=== PATIENT | female | born 1990 | race Caucasian/White ===

== ENCOUNTER → 2016-10-22 | Outpatient (CLI) | payer OTHER ==
[~2016-10-22] MED LIST: CLC150 PO; LRT5 PO; PRED20TA PO; PRED50TA PO; PRENTAB26 PO; VALA1TAB31 PO
== END | disposition home or self-care (01) ==
LOC: C.LABSPEC 17:47
PROVIDERS: ATTEND Obstetrics & Gynecology
DX: Z34.03 Encounter for supervision of normal first pregnancy, third trimester (principal)

== ENCOUNTER 2016-11-14 06:27 | Inpatient (IN) | payer OTHER ==
[~2016-11-14] VITALS: Ht 157.5 cm; Wt 56.8 kg
[~2016-11-14 06:27] MED LIST changes: -PRENTAB26 PO; -VALA1TAB31 PO
[2016-11-19] MEDS ORDERED: PRENTAB26 PO (13:31)
[2016-11-19] MEDS ORDERED: VALA1TAB31 PO (13:31)
[2016-11-19 13:34] VITALS: Ht 157.5 cm; Wt 56.8 kg
[2016-11-19] MEDS ORDERED: LACTATED RINGER'S 1000ML 1,000 ML IV PRN (13:36)
[2016-11-19 14:07] LABS: MEAN CELL VOLUME 86.7 fL (80-100); MEAN CORPUSCULAR HEMOGLOBIN 30.7 pg (25-34); MEAN CORPUSCULAR HGB CONC 35.4 g/dl (32-36); MEAN PLATELET VOLUME 11.2 fL (7.4-10.4); PLATELET COUNT 151 K/uL (130-400); RED BLOOD COUNT 4.27 M/uL (4.2-5.4); WHITE BLOOD COUNT 10.79 K/uL (4.8-10.8)
[2016-11-19] MEDS: LACTATED RINGER'S 1000ML 1,000 ML IV SCH ×2 (14:51→16:46)
[2016-11-19] MEDS ORDERED: FENTANYL 2MCG/ML ROPIV 1.25MG/ML 100ML BAG EPI ONE (14:53)
[2016-11-19] MEDS ORDERED: BUPIVACAINE 0.25% 30 ML VIAL ONE (14:53)
[2016-11-19] MEDS ORDERED: EpHEDrine SULFATE INJ 50 MG/ML AMP ONE (14:53)
[2016-11-19] MEDS: FENTANYL CITRATE INJ 50 MCG/1 ML 2 ML VIAL ONE ×2 (15:18→15:40)
[2016-11-19] MEDS ORDERED: NALOXONE HCL INJ 1 MG in SODIUM CHLORIDE 0.9% 1000ML 1,000 ML IV PRN (17:27)
[2016-11-19] MEDS ORDERED: LACTATED RINGER'S 1000ML 500 ML IV PRN (17:27)
[2016-11-19] MEDS ORDERED: EpHEDrine SULFATE INJ 50 MG/ML AMP IV PRN (17:30)
[2016-11-19] MEDS ORDERED: DiphenhydrAMINE HCL 50 MG/ML VIAL IV PRN (17:30)
[2016-11-19] MEDS ORDERED: ONDANSETRON INJ 2 MG/ML 2 ML VIAL IV PRN (17:30)
[2016-11-19] MEDS ORDERED: NALOXONE HCL INJ 0.4 MG/1 ML VIAL/CARP IV PRN (17:30)
[2016-11-19] MEDS ORDERED: NALBUPHINE HCL INJ 10 MG/ML AMP IV PRN (17:30)
[2016-11-19] MEDS ORDERED: FENTANYL 2MCG/ML ROPIV 1.25MG/ML 100ML BAG EPI PRN (17:30)
[2016-11-19] MEDS ORDERED: OXYTOCIN 30 UNITS/500ML NSS IV ONE (17:39)
[2016-11-19] MEDS ORDERED: HYDROCORTISONE ACETATE 25 MG SUPP PR PRN (18:45)
[2016-11-19] MEDS ORDERED: LANOLIN OINT EXT PRN ×2 (18:45)
[2016-11-19] MEDS ORDERED: ACETAMINOPHEN 325 MG TAB PO PRN (18:45)
[2016-11-19] MEDS ORDERED: BENZOCAINE 20% AER SPR 82.5 GM CAN EXT PRN (18:45)
[2016-11-19] MEDS ORDERED: OXYTOCIN 30 UNITS/500ML NSS IV PRN (18:45)
[2016-11-19] MEDS ORDERED: SUPERCREAM 0.870 % 15GM JAR EXT PRN (18:45)
[2016-11-19] MEDS ORDERED: ACETAMINOPHEN/CODEINE 300/30MG TAB PO PRN (18:45)
--- NOTE | 2016-11-19 19:03 | Anesthesia Procedure Note ---
Anesthesia Epidural Removal Nt Date & Time Nov 19, 2016 at 19:03 Vital Signs Pain Intensity: 0.0 Notes Mental Status: alert / awake / arousable, participated in evaluation Nausea / Vomiting: adequately controlled Pain: adequately controlled Airway Patency, RR, SpO2: stable & adequate BP & HR: stable & adequate Hydration State: stable & adequate Neuraxial Anesthesia: was administered, sensory block is resolving Anesthetic Complications: no major complications apparent, pt satisfied with anesthetic care Epidural: removed without complications, with tip intact
[2016-11-19 21:00] VITALS: BP 117/62; PULSE 99; TEMP 36.5
[2016-11-20 00:10] VITALS: BP 114/76; PULSE 89; TEMP 36.7; O2SAT 96
[2016-11-20] MEDS: IBUPROFEN 600 MG TAB PO PRN ×3 (01:24→15:36)
--- NOTE | 2016-11-20 02:38 | DELIVERY SUMMARY ---
DATE OF OPERATION: 11/19/2016 DELIVERING SURGEON: Dr. Grider. P[RE-DELIVERY DIAGNOSES: 1. A 26-year-old G1, P0, at 40 weeks 5 days. 2. Spontaneous labor. 3. History of herpes simplex virus. No current outbreak. POST-DELIVERY DIAGNOSES: Same. ESTIMATED BLOOD LOSS: 300 mL FINDINGS: A viable male , Apgars 8 and 9. CONDITION AFTER DELIVERY: Stable and good. DESCRIPTION OF DELIVERY: The patient progressed to complete with epidural anesthesia. She then spontaneously vaginally delivered a viable male from a left occiput anterior position. The head delivered, nuchal cord x2 was noted and easily reduced. The anterior shoulder followed by the posterior shoulder were delivered followed by the body. The baby was placed on the mother's abdomen where a spontaneous cry was heard. The cord was doubly clamped and cut. A segment was sent for cord gases. Cord blood was obtained. The placenta delivered spontaneously, intact with a 3-vessel cord. Pitocin was given. The uterus began to clamp down, and the cervix, vagina and perineum were inspected for lacerations. A second-degree perineal laceration was noted. The anal sphincter muscle was visible and intact. Rectal exam revealed no entry into the anus as well as subsequent rectal exam revealed no sutures in the rectum. The second-degree perineal laceration was repaired with 3-0 Vicryl in standard fashion. Excellent hemostasis was observed. The patient and baby tolerated the delivery well. Sponge, instrument and needle counts were correct x2 at the conclusion of the delivery. I attest to the content of the Intraoperative Record and any orders documented therein. Any exceptio ns are noted below.
[2016-11-20 04:15] VITALS: BP 113/73; PULSE 82; TEMP 36.6; O2SAT 98
[2016-11-20 06:49] LABS: HEMATOCRIT 31.8 % (37-47)
[2016-11-20 07:25] VITALS: BP 86/59; PULSE 87; TEMP 36.6
[2016-11-20] MEDS: PRENATAL VITAMIN TAB PO SCH (07:42)
--- NOTE | 2016-11-20 08:39 | Progress Note ---
Subjective Nov 20, 2016. Subjective conversation w/ patient, physical exam Ambulation: ambulating normally Voiding: no voiding problems Passing Gas: Yes Diet Tolerance: Regular Diet Lochia: Moderate Feeding Type: Breast Feeding Pain: controlled Review of Systems Constitutional: No problem reported Respiratory: No problem reported Cardiac: No problem reported Breast: No problem reported Abdomen: No problem reported Female : No problem reported Objective Vital Signs Date Time Temp Pulse Resp B/P Pulse Ox O2 Delivery O2 Flow Rate FiO2 11/20/16 04:15 36.6 82 16 113/73 98 Room Air 11/20/16 00:10 36.7 89 20 114/76 96 Room Air 11/20/16 00:10 96 Room Air 11/19/16 21:00 36.5 99 20 117/62 Room Air Physical Exam General Appearance: WELL-APPEARING, NO APPARENT DISTRESS Respiratory/Chest: no respiratory distress Cardiovascular: regular rate, rhythm Abdomen: non tender, soft Fundus: Firm Incision Description: Clean, Dry & Intact Extremities: normal inspection Laboratory Results Last 24 Hours Test 11/19/16 13:56 11/20/16 06:07 White Blood Count 10.79 K/uL Red Blood Count 4.27 M/uL Hemoglobin 13.1 g/dL 10.9 g/dL Hematocrit 37.0 % 31.8 % Mean Corpuscular Volume 86.7 fL Mean Corpuscular Hemoglobin 30.7 pg Mean Corpuscular Hemoglobin Concent 35.4 g/dl RDW Standard Deviation 42.6 fL RDW Coefficient of Variation 13.5 % Platelet Count 151 K/uL Mean Platelet Volume 11.2 fL Assessment and Plan Day#: 1 Continue Routine Care: POD#1 s/p c/s breech, doing well. Continue ambulation, PO hydration. Continue routine care.
[2016-11-20 12:15] VITALS: BP 124/79; PULSE 99; TEMP 36.5
[2016-11-20 13:10] VITALS: BP 93/53; PULSE 87; TEMP 36.9
[2016-11-20 15:30] VITALS: BP 110/76; PULSE 87; TEMP 36.6
[2016-11-20] MEDS: ACETAMINOPHEN/CODEINE 300/30MG TAB PO PRN (17:25)
[2016-11-20] MEDS ORDERED: BISACODYL 5 MG TABEC PO ONE (20:00)
[2016-11-21] VITALS: BP 105/62; PULSE 66; TEMP 36.4
[2016-11-21] MEDS: ACETAMINOPHEN/CODEINE 300/30MG TAB PO PRN (04:41)
[2016-11-21] MEDS: IBUPROFEN 600 MG TAB PO PRN (04:41)
[2016-11-21] MEDS ORDERED: BISACODYL 10 MG SUPP PR PRN (07:00)
[2016-11-21] MEDS: PRENATAL VITAMIN TAB PO SCH (08:11)
[2016-11-21 08:15] VITALS: BP 113/71; PULSE 78; TEMP 36.7
--- NOTE | 2016-11-21 08:34 | Progress Note ---
Subjective Nov 21, 2016. Subjective conversation w/ patient, physical exam, lab review Ambulation: ambulating normally Voiding: no voiding problems Passing Gas: Yes Diet Tolerance: Regular Diet Lochia: Small Feeding Type: Breast Feeding Pain: minimal Objective Vital Signs Date Time Temp Pulse Resp B/P Pulse Ox O2 Delivery O2 Flow Rate FiO2 11/21/16 00:00 36.4 66 18 105/62 Room Air 11/21/16 00:00 Room Air 11/20/16 15:30 36.6 87 20 110/76 Room Air 11/20/16 15:30 Room Air 11/20/16 12:15 36.5 99 18 124/79 Room Air Physical Exam General Appearance: WELL-APPEARING, WD/WN, NO APPARENT DISTRESS Respiratory/Chest: lungs clear, normal breath sounds Cardiovascular: regular rate, rhythm Abdomen: normal bowel sounds, non tender, soft Fundus: Firm, Non-Tender, Relation to Umbilicus (at u) Extremities: non-tender, normal inspection Assessment and Plan Post- Day#: 2 Continue Routine Care: Doing well. Plan d/c. Instructions given.
--- NOTE | 2016-11-21 08:36 | Discharge Instructions ---
Discharge Instructions Admission Reason for Admission: LABOR Discharge Discharge Diagnosis / Problem: s/p vaginal delivery Discharge Goals Goal(s): Routine recovery after delivery Medications Continue Dispensed Medications: supercream, dermaplast, tucks, lansinoh Activity Recommendations Activity Limitations: per Instructions/Follow-up section ACTIVITY RECOMMENDATIONS: * Gradual return to full activity over the next 2-3 weeks. * No lifting - nothing heavier than baby over the next 2-3 weeks. * Do not engage in vigorous exercise, sexual activity or sports until cleared by your physician. * Do not drive or operate any motorized equipment until cleared by your physician. * You may shower/bathe daily. MEDICATIONS: For discomfort or pain, you may use Acetaminophen (Tylenol), Ibuprofen (Advil), or Naproxen (Aleve) following the package directions. For constipation you may use Colace following the package directions. BREAST CARE: If you are not breast feeding: * Wear a supportive bra 24 hours a day for one to two weeks. * Avoid stimulating your breasts and nipples as much as possible during the first few weeks after delivery. * When taking a shower, have the warm water hit your back, not breasts. * When your breasts feel full, apply ice packs. Usually three to four times a day helps ease the discomfort. * Take a mild pain medication (Tylenol / Motrin) when you are uncomfortable. If breast feeding: * Use breast milk to lubricate nipples. Lansinoh cream may be used for sore nipples. You do not need to remove cream prior to breast feeding. If using a different brand of cream, check the label for directions regarding removal of cream prior to nursing. * Wear a supportive bra. * If having problems with breasts or breast feeding, call a senior business consultant or your health care provider. EPISIOTOMY CARE: After delivery, if you have an episiotomy (stitches), the following steps will ease discomfort and aid healing. * For the first 24 hours after delivery, place ice packs next to your episiotomy to help reduce swelling. * After the first 24 hour-period, sitz baths, either portable or in the tub, are suggested. A shower with a shower arm sprayed over the episiotomy may be comforting. * Cuca care should be done after each voiding and bowel movement. Squirt warm water from a plastic bottle over the perineum (region of the body between the anus and urinary opening) and pat dry. * Use Dermoplast to ease discomfort. Shake container. Vian directly over the episiotomy. Place a Tucks on a clean sanitary pad next to your episiotomy. SPECIAL CARE INSTRUCTIONS: When you are discharged from the hospital, it is important for you to follow the instructions listed below: * During the first week at home, you should be able to care for yourself and your baby. In addition, the usual light household activities are encouraged. * Limit your activities to the way you feel. Do not try to clean the house or move furniture. Be sensible. * If you actively engage in sports and have done so up until the time of your delivery, you may resume these activities as soon as you feel able. This may take up to one month or even longer. Use good judgment. * Continue to take your vitamins for at least six weeks after the of your baby. * Your diet need not be limited unless you were on a special diet before your delivery. Breast-feeding mothers need around 2500 calories per day and at least 64-80 ounces of fluid per day (8 to 10 glasses). * You should eat foods from the four major food groups. Crash diets or fad diets are to be avoided. Eating lean meats, fresh fruits and vegetables, low-fat dairy products, high fiber foods and a regular exercise program, will help you get back to your pre- weight without putting your health at risk. * Constipation is sometimes a problem after delivery. Take a mild laxative as needed. If breast feeding, Milk of Magnesia is acceptable to use. You may use a suppository or Fleets enema if no episiotomy. * A daily shower or tub bath is suggested. Be sure to thoroughly and gently dry the perineum. * A bloody vaginal discharge will usually continue until around four weeks post . A small amount of bleeding may continue for as long as six weeks. Vaginal discharge changes from the bright red bleeding after delivery to pink then brownish and finally yellowish-pink before becoming white and disappearing. * Bleeding may increase with activity. Your first period may come in 4-8 weeks. If you are breast feeding, your period may be delayed even longer. * [place] (sex) can begin whenever both you and your partner feel comfortable and do not have any form of genital infection. It is recommended that you wait at least six weeks for internal and external healing to occur. If you have questions, please talk to your health care practitioner. A condom should be used to prevent infection and . * Foreplay, gentle intercourse and lubrication is very important the first several times to prevent pain. A water-based lubricant such as K-Y jelly or Astroglide may be used. * If you have RH negative blood and your baby is RH positive, you will receive RHOGAM by injection prior to discharge. The nurse will give you a card to keep with you that has the date and place that you received RHOGAM after delivery. * During your care, you had a Rubella screen done to check for the presence of rubella antibodies in your blood. If your test was negative, you will receive a Rubella vaccine prior to discharge. This vaccine may cause a fever, soreness at the injection site and flu-like symptoms. If these symptoms persist, notify your health care practitioner. is not advised for one month after a Rubella vaccine. * Verbalizes understanding of car seat law as reviewed with patient nursing. * Car Seat hand-out given and reviewed with patient by nursing. * Shaken baby information reviewed with patient by nursing. Call you doctor if: * Heavy bleeding (saturating several pads an hour) or passing clots the size of your fist. * A fever >101 degrees F (38.3 degrees C) on two occasions four hours apart and /or chills. * Unusual pain in the pelvic or vaginal areas. * "Baby Blues" lasting longer than two weeks. If you have any questions or concerns, call your health care practitioner at . FOLLOW UP VISIT: * Please call the office at to schedule a 6 week examination. It is important you keep this appointment. It is important for you to make arrangements for either yearly or twice yearly check-ups thereafter. . Current Hospital Diet Patient's current hospital diet: Regular OB Diet Discharge Diet Recommended Diet: Regular Diet Pending Studies Studies pending at discharge: no Medical Emergencies . Who to Call and When: Medical Emergencies: If at any time you feel your situation is an emergency, please call 911 immediately. . Non-Emergent Contact Non-Emergency issues call your: Toy Assembly Supervisor . . "Provider Documentation" section prepared by Adina Andrade. VTE Core Measure Inpt VTE Proph given/why not?: Treatment not indicated
[2016-11-21 13:00] VITALS: BP_DIAS 71; PULSE 78; TEMP 36.7
== END 2016-11-21 13:20 | disposition home or self-care (01) | DRG 775 ==
LOC: C.LD 11-19 13:02 → C.OBG 11-19 21:21
PROVIDERS: ADMIT Obstetrics & Gynecology; ATTEND Obstetrics & Gynecology
PROC: 0KQM0ZZ Repair Perineum Muscle, Open Approach (ICD-10-PCS; principal; 2016-11-19)
PROC: 10E0XZZ Delivery of Products of Conception, External Approach (ICD-10-PCS; principal; 2016-11-19)
DX: O48.0 Post-term pregnancy (principal); O69.81X0 Labor and delivery complicated by cord around neck, without compression, not applicable or unspecified; O70.1 Second degree perineal laceration during delivery; Z3A.40 40 weeks gestation of pregnancy; Z37.0 Single live birth

== ENCOUNTER → 2017-05-27 | Outpatient (CLI) | payer OTHER ==
[~2017-05-27] MED LIST changes: -CLC150 PO; -LRT5 PO; -PRED20TA PO; -PRED50TA PO; +PRENTAB26 PO
[2017-05-27 13:36] LABS: ALT/SGPT 22 U/L (12-78); BLOOD UREA NITROGEN 13 mg/dl (7-18); BUN/CREATININE RATIO 16.7 (10-20); CALCIUM 8.7 mg/dl (8.5-10.1); CARBON DIOXIDE 25 mmol/L (21-32); CHLORIDE 108 mmol/L (98-107); CHOLESTEROL 157 mg/dl (0-200); CREATININE 0.78 mg/dl (0.60-1.20); GLUCOSE 79 mg/dl (70-99); POTASSIUM 4.1 mmol/L (3.5-5.1); SODIUM 139 mmol/L (136-145); TRIGLYCERIDES 84 mg/dl (0-150); VERY LOW DENSITY LIPOPROT CALC 17 mg/dl
[2017-05-27 13:46] LABS: ALB/GLOB RATIO 1.2 (0.9-2); ALKALINE PHOSPHATASE 68 U/L (45-117); AST/SGOT 13 U/L (15-37); CHOLESTEROL/HDL RATIO 3.1; HDL CHOLESTEROL 51 mg/dl; LDL CHOLESTEROL CALCULATED 89 mg/dl
== END | disposition home or self-care (01) ==
LOC: C.LABPBG 07:35
PROVIDERS: ATTEND Neuromusculoskeletal Medicine & OMM
DX: Z00.00 Encounter for general adult medical examination without abnormal findings (principal)

== ENCOUNTER → 2018-05-04 | Outpatient (CLI) | payer OTHER | END | disposition home or self-care (01) | LOC: C.LABPBG 07:59 | PROVIDERS: ATTEND Family Medicine | DX: Z00.00 Encounter for general adult medical examination without abnormal findings (principal) ==

== ENCOUNTER 2019-12-04 08:07 | Inpatient (IN) ==
[2019-12-04] MEDS ORDERED: OXYTOCIN 30 UNITS/500 ML BAG IV PRN ×3 (08:50→19:11)
[2019-12-04] MEDS: LACTATED RINGER'S 1,000 ML IV PRN ×3 (09:28→16:51)
[2019-12-04 09:35] LABS: Hematocrit (blood only) 33.7 % (37-47); Hemoglobin 11.5 g/dL (12.0-16.0); Mean Corpuscular Hemoglobin 28.9 pg (25-34); Mean Corpuscular Volume 84.7 fL (80-100); Mean Platelet Volume 10.4 fL (7.4-10.4); Platelet Count 132 K/uL (130-400); RDW Coefficient of Variation 14.5 % (11.5-14.5); RDW Standard Deviation 44.5 fL (36.4-46.3); Red Blood Count 3.98 M/uL (4.2-5.4); White Blood Count 7.13 K/uL (4.8-10.8)
--- NOTE | 2019-12-04 09:55 | History & Physical Report ---
Date of Service December 04, 2019 Assessment & Plan (1) Supervision of normal intrauterine in multigravida: IUP at 41 weeks for IOL by pitocin will request epidural analgesia before AROM anticipate vaginal delivery History of Present Illness Primary Care Provider: Coleen Huynh DO Patient is a 29 yo white female EDC 11/30/19 who presents for IOL because of post term . GBS (-) was complicated by history of genital HSV for which she has been taking valtrex prophylactically since 36 weeks. Allergies Allergy/AdvReac Type Severity Reaction Status Date / Time nickel Allergy Rash Verified 12/04/19 08:32 Home Medications Home Medications Medication Instructions Recorded Confirmed Type PNV cmb#95-ferrous fumarate-FA 1 tab PO DAILY 12/04/19 12/04/19 History [] ferrous sulfate [iron] 325 mg PO DAILY 12/04/19 12/04/19 History valacyclovir [Valtrex] 1,000 mg PO DAILY 12/04/19 12/04/19 History Patient History Medical History (Updated 12/04/19 @ 09:53 by Sarah Sommer MD, FACOG) Gastroesophageal reflux no meds Genital herpes simplex (Acute) last outbreak was approx 5 plus years ago. Only breakout known to patient. Lentigines followed by dermatology. Normal in multigravida, antepartum Seizure hx of febrile seizures. 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 Other Information That Helps Us Care for You: No Feels Safe at Home: Yes Safety Concerns: Feels Safe At This Time Smoking Status: Never smoker Second Hand Exposure: No ; Hx Alcohol Use: Yes Alcohol Intake Frequency: Rarely Hx Substance Use: No Dental Care, Regularly: Yes Physical Activity Frequency: 3-4 Times per Week Seatbelt Use: always Sunscreen Use: Yes Review of Systems All systems reviewed & are unremarkable except as noted in HPI & below Physical Exam Constitutional: WD/WN, vitals as above Respiratory: normal respiratory effort, lungs clear to auscultation Cardiovascular: RRR, no murmur, no edema Gastrointestinal (Abdomen): normal bowel sounds, soft, nontender, no h epatosplenomegaly Psychiatric: A+Ox3, euthymic affect Genitourinary: OB Exam Abdomen: + vertex and + estimated weight (7-8 pounds) Manual OB Exam: + cervical dilation 3 cm, + cervical effacement 70% and + station -2 OB Exam Monitor Tracing: + external FHT monitor used, + external uterine monitor used, + category I and + normal FHT variability Results & Data Vital Signs (Past 12 Hours) Vital Signs Temp Pulse Resp BP 12/04/19 09:36 96 H 121/80 12/04/19 08:25 108 H 120/80 12/04/19 08:24 98.2 F 16 Coding Level of Care Code None Diagnoses Supervision of normal intrauterine in multigravida Z34.80
[2019-12-04 10:09] LABS: Mean Corpuscular Hgb Conc 34.1 g/dL (32-36)
[2019-12-04] MEDS ORDERED: fentaNYL citrate 100 MCG/2 ML VIAL ONE (13:10)
[2019-12-04] MEDS ORDERED: BUPIVACAINE 0.25% 30 ML VIAL ONE (13:10)
[2019-12-04] MEDS ORDERED: ePHEDrine sulfate 50 MG/ML AMP ONE (13:10)
[2019-12-04] MEDS ORDERED: fentaNYL 2MCG/ML ROPIV 1.25MG/ML 100 ML BAG EPI ONE (13:12)
[2019-12-04] MEDS ORDERED: ONDANSETRON INJ 2 MG/ML 2 ML VIAL IV PRN (13:53)
[2019-12-04] MEDS ORDERED: NALOXONE HCL 1 MG in SODIUM CHLORIDE 0.9% 1000ML 1,000 ML IV PRN (13:53)
[2019-12-04] MEDS ORDERED: DiphenhydrAMINE HCL 50 MG/ML VIAL IV PRN (13:53)
[2019-12-04] MEDS ORDERED: ePHEDrine sulfate 50 MG/ML AMP IV PRN (13:53)
[2019-12-04] MEDS ORDERED: NALBUPHINE HCL INJ 10 MG/ML AMP IV PRN (13:53)
[2019-12-04] MEDS ORDERED: NALOXONE HCL 0.4 MG/1 ML VIAL/CARP IV PRN (13:53)
[2019-12-04] MEDS ORDERED: fentaNYL 2MCG/ML ROPIV 1.25MG/ML 100 ML BAG EPI PRN (13:53)
--- NOTE | 2019-12-04 13:53 | Anesthesiology Consultation ---
Date of Service December 04, 2019 Assessment & Plan (1) Encounter for pre-operative examination: Chart Review Chart Review: Acceptable Risk for Labor Epidural Consults Requested none ASA ASA2 Proposed Anesthesia Anesthesia Type: Labor Epidural Risk / Benefits Reviewed With: PT / POA / Parent / Guardian, Accepts Plan and Informed Consent Obtained History Height/Weight Height: 5 ft 2 in Weight: 58.06 kg Allergies Allergy/AdvReac Type Severity Reaction Status Date / Time nickel Allergy Rash Verified 12/04/19 08:32 Medications Home Medications Medication Instructions Recorded Confirmed Last Taken PNV cmb#95-ferrous fumarate-FA 1 tab PO DAILY 12/04/19 12/04/19 12/04/19 07:00 [] ferrous sulfate [iron] 325 mg PO DAILY 12/04/19 12/04/19 12/04/19 07:00 valacyclovir [Valtrex] 1,000 mg PO DAILY 12/04/19 12/04/19 12/04/19 07:00 Active Medications Generic Name Dose Route Start Last Admin Trade Name Freq PRN Reason Stop Dose Admin Lactated Ringer's 1,000 mls @ 125 mls/hr 12/04/19 08:50 12/04/19 13:31 Lr IV 12/06/19 08:49 999 mls/hr .Q8H PRN Administration L&D Protocol Protocol Oxytocin 30 units in 500 mls @ 7 mls/hr 12/04/19 08:50 12/04/19 12:14 Pitocin IV 12/06/19 08:49 0.42 units/hr .Q24H PRN 7 mls/hr Labor Induction/Augmentation Titration Protocol 0.42 UNITS/HR Past Medical History Medical History Gastroesophageal reflux no meds Genital herpes simplex (Acute) last outbreak was approx 5 plus years ago. Only breakout known to patient. Lentigines followed by dermatology. Normal in multigravida, antepartum Seizure hx of febrile seizures. Exercise / Class Metabolic Activity II 4-5 Yardwork/Stairs/Walk up hill Past Family History Family History Grandmother Diabetes Sister Kidney stones Seizure Grandfather Prostate cancer Grandfather (Maternal) Myocardial infarction Aunt Myocardial infarction Brother Seizure Father B12 deficiency Mother No known health problems Denies family history of Ovarian cancer Breast cancer Colorectal cancer Past Surgical History Surgical History History of tonsillectomy and adenoidectomy History of tooth extraction S/P tonsillectomy (Resolved) S/P wisdom tooth extraction (Resolved) Past Anesthesia History No Hx of Anesthesia Complications and No Family Hx of Anesthesia Complications History of PONV No Hx of PONV and No Hx of Motion Sickness Social History Smoking Status: Never smoker Hx Alcohol Use: Yes Hx Substance Use: No substance use type: does not use Physical Exam Vital Signs Last Vital Signs Temp 98.2 F 12/04/19 08:24 Pulse 87 12/04/19 13:14 Resp 16 12/04/19 08:24 BP 124/79 12/04/19 13:14 ENMT Mouth: no dentition abnormality Thyromental Distance: > or= 3.5 Finger Breadths Mallampati Class: II Neck normal visual inspection Respiratory normal respiratory effort Auscultation: lungs clear to auscultation bilaterally Cardiovascular Rate/Rhythm: regular rate and regular rhythm Testing Laboratory Results 12/04/19 09:09
[2019-12-04] MEDS ORDERED: BENZOCAINE 20% AER SPR 82.5 GM CAN EXT PRN (19:11)
[2019-12-04] MEDS ORDERED: bisacodyL 10 MG SUPP PR PRN (19:11)
[2019-12-04] MEDS ORDERED: SUPERCREAM 0.870% 15 GM JAR EXT PRN (19:11)
[2019-12-04] MEDS ORDERED: HYDROCORTISONE ACETATE 25 MG SUPP PR PRN (19:11)
[2019-12-04] MEDS ORDERED: OXYCODONE/ACETAMINOPHEN 5mg/325mg TAB PO PRN (19:11)
[2019-12-04] MEDS ORDERED: ACETAMINOPHEN 325 MG TAB PO PRN (19:11)
[2019-12-04] MEDS ORDERED: DIPHTHERIA/TETANUS/PERTUSSIS 0.5 ML SYR/VIAL IM ONE (19:11)
--- NOTE | 2019-12-04 19:23 | Anesthesia Procedure Note ---
Date of Service December 04, 2019 Anesthesia Post Epidural Note Vital Signs Vital Signs: Temp Pulse Resp BP Pulse Ox 98.2 F 101 H 16 121/61 100 12/04/19 08:24 12/04/19 19:16 12/04/19 08:24 12/04/19 19:16 12/04/19 19:00 Notes Mental Status: alert / awake / arousable and participated in evaluation Nausea / Vomiting: adequately controlled Pain: adequately controlled Airway Patency, RR, SpO2: stable & adequate BP & HR: stable & adequate Hydration State: stable & adequate Neuraxial Anesthesia: was administered and sensory block is resolving Anesthetic Complications: no major complications apparent and Pt Satisfied with anesthetic care Epidural: Removed without complications and With tip intact
--- NOTE | 2019-12-04 19:38 | Delivery Summary ---
DATE OF OPERATION: 12/04/2019 The patient is a 29-year-old 3, para 1-0-1-1 white female, EDC of 11/30/2019 who presented for induction of labor because of post-term . She was started on Pitocin augmentation. She received effective epidural analgesia. Membranes were ruptured for clear fluid. She progressed to full dilation and was delivered of a viable female . After the head was delivered, the anterior arm presented and the was rotated so then the anterior arm became the posterior arm. The rest of the infant delivered without difficulty and was placed on the mother's abdomen for further attention and drying. There was spontaneous crying and the was moving all 4 limbs. The cord was then clamped and cut after a minute. Placenta was expressed intact with a 3-vessel cord. A first-degree perineal laceration was repaired with 3-0 chromic in the usual fashion. Estimated blood loss was 200 mL. Mother and infant were doing well after delivery. I attest to the content of the Intraoperative Record and any orders documented therein. Any exception s are noted below.
[2019-12-04] MEDS ORDERED: DOCUSATE SODIUM 100 MG CAP PO SCH (21:00)
[2019-12-04] MEDS: IBUPROFEN 600 MG TAB PO PRN (22:18)
[2019-12-05] MEDS: IBUPROFEN 600 MG TAB PO PRN ×3 (03:39→15:31)
[2019-12-05 07:21] LABS: Hemoglobin 10.8 g/dL (12.0-16.0); Mean Corpuscular Hemoglobin 28.6 pg (25-34); Mean Corpuscular Hgb Conc 33.8 g/dL (32-36); Mean Corpuscular Volume 84.9 fL (80-100); Mean Platelet Volume 10.6 fL (7.4-10.4); Platelet Count 114 K/uL (130-400); RDW Coefficient of Variation 14.5 % (11.5-14.5); RDW Standard Deviation 44.7 fL (36.4-46.3); Red Blood Count 3.77 M/uL (4.2-5.4); White Blood Count 9.19 K/uL (4.8-10.8)
[2019-12-05] MEDS ORDERED: PRENATAL VITAMIN 1 TAB PO SCH (08:00)
--- NOTE | 2019-12-05 08:09 | Obstetrical Progress Note ---
Date of Service December 05, 2019 Assessment & Plan (1) Encounter for care and examination after delivery: stable exam continue current care plan Day #:: 1 Subjective Ambulation: ambulating normally Voiding: no voiding problems Diet Tolerance:: regular diet Lochia:: Moderate Feeding Type:: breast feeding Review of Systems All systems reviewed & are unremarkable except as noted in HPI & below Psychiatric: + as per Subjective / HPI Physical Exam Constitutional WD/WN, vitals as above Psychiatric A+Ox3, euthymic affect Genitourinary OB Exam Abdomen: + fundal height Fundus: + firm and + relation to umbilicus (1 below U) Results & Data Vital Signs (Past 12 Hours) Vital Signs Temp Pulse Pulse Resp BP BP Pulse Ox 12/05/19 03:15 97.9 F 83 18 107/66 12/05/19 00:15 97.9 F 88 18 105/67 12/04/19 22:05 97.7 F 101 H 18 108/72 100 12/04/19 21:01 106 H 128/77 12/04/19 20:46 112 H 124/81 12/04/19 20:31 93 H 18 117/72 12/04/19 20:16 109 H 131/75
[2019-12-05] MEDS ORDERED: bisacodyL 5 MG TABEC PO SCH (20:00)
== END 2019-12-05 21:19 | disposition home or self-care (01) | DRG 806 ==
LOC: 4S1 08:07 → 4S2 21:19

== ENCOUNTER 2023-03-08 07:44 | Inpatient (IN) ==
[2023-03-08] MEDS ORDERED: OXYTOCIN 30 UNITS/500 ML BAG IV PRN ×4 (08:10→17:25)
[2023-03-08] MEDS ORDERED: LIDOCAINE 1% LOCAL 20 ML VIAL INFIL PRN (08:10)
[2023-03-08] MEDS: LACTATED RINGER'S 1,000 ML IV PRN ×3 (08:50→13:47)
[2023-03-08] MEDS ORDERED: SODIUM CHLORIDE 0.9% PF INJ 10 ML VIAL ONE (09:10)
[2023-03-08] MEDS ORDERED: fentaNYL citrate PF 100 MCG/2 ML VIAL ONE (09:10)
[2023-03-08] MEDS ORDERED: ePHEDrine sulfate 50 MG/ML AMP ONE (09:10)
[2023-03-08] MEDS ORDERED: BUPIVACAINE 0.25% PF 30 ML VIAL ONE (09:10)
[2023-03-08] MEDS ORDERED: LIDOCAINE 2%/EPINEPHRINE 1:200,000 20 ML PF ONE (09:11)
[2023-03-08] MEDS ORDERED: fentaNYL 2MCG/ML ROPIVACAINE 1.25MG/ML 100 ML BAG EPI ONE (09:11)
[2023-03-08 09:15] LABS: Hematocrit (blood only) 30.5 % (37.0-47.0); Hemoglobin 9.6 g/dl (12.0-16.0); Mean Corpuscular Hemoglobin 24.1 pg (25.0-34.0); Mean Corpuscular Hgb Conc 31.5 g/dL (32.0-36.0); Mean Corpuscular Volume 76.6 fL (80.0-100.0); Mean Platelet Volume 10.9 fL (9.4-12.4); Platelet Count 159 K/uL (130-400); RDW Standard Deviation 44.1 fL (36.4-46.3); Red Blood Count 3.98 M/uL (4.20-5.40)
[2023-03-08] MEDS ORDERED: NALOXONE HCL 1 MG in SODIUM CHLORIDE 0.9% 1000ML 1,000 ML IV PRN (09:32)
[2023-03-08] MEDS ORDERED: BUPIVACAINE 0.25% PF 30 ML VIAL EPI PRN (09:32)
[2023-03-08] MEDS ORDERED: ROPIVACAINE 0.5% PF 5 MG/ML 20 ML VIAL EPI PRN (09:32)
[2023-03-08] MEDS ORDERED: NALBUPHINE HCL INJ 10 MG/ML AMP IV PRN (09:32)
[2023-03-08] MEDS ORDERED: fentaNYL 2MCG/ML ROPIVACAINE 1.25MG/ML 100 ML BAG EPI PRN (09:32)
[2023-03-08] MEDS ORDERED: SODIUM CHLORIDE 0.9% PF INJ 10 ML VIAL EPI PRN (09:32)
[2023-03-08] MEDS ORDERED: diphenhydrAMINE 50 MG/ML VIAL IV PRN (09:32)
[2023-03-08] MEDS ORDERED: fentaNYL citrate PF 100 MCG/2 ML VIAL EPI STA (09:32)
[2023-03-08] MEDS ORDERED: SODIUM CHLORIDE 0.9% PF INJ 10 ML VIAL EPI STA (09:32)
[2023-03-08] MEDS ORDERED: fentaNYL citrate PF 100 MCG/2 ML VIAL EPI PRN (09:32)
[2023-03-08] MEDS ORDERED: LIDOCAINE 2%/EPINEPHRINE 1:200,000 20 ML PF EPI STA (09:32)
[2023-03-08] MEDS ORDERED: LIDOCAINE 2% MPF LOCAL 5 ML VIAL EPI PRN (09:32)
[2023-03-08] MEDS ORDERED: BUPIVACAINE 0.25% PF 30 ML VIAL EPI STA (09:32)
[2023-03-08] MEDS ORDERED: NALOXONE HCL 0.4 MG/1 ML VIAL/CARP IV PRN (09:32)
--- NOTE | 2023-03-08 09:34 | Anesthesiology Consultation ---
Date of Service March 08, 2023 Assessment & Plan (1) Encounter for pre-operative examination: Chart Review Chart Review: Patient NOT seen in Pre Admission Testing and Acceptable Risk for Labor Epidural Consults Requested none History Height/Weight Height: 5 ft 2 in Weight: 57.153 kg Allergies Allergy/AdvReac Type Severity Reaction Status Date / Time nickel Allergy Rash Verified 03/07/23 13:58 No Known Drug Allergies Allergy Verified 03/07/23 13:58 Medications Home Medications Medication Instructions Recorded Confirmed Last Taken escitalopram oxalate 10 mg tablet 10 mg PO DAILY #90 tabs 06/08/22 03/08/23 03/07/23 08:00 (Lexapro) valacyclovir 500 mg tablet 500 mg PO BID 5 days #10 tabs 06/08/22 03/08/23 03/07/23 22:30 (Valtrex) prenat.vits,lilly,[id number] 1 tab PO DAILY 07/29/22 03/08/23 03/07/23 08:00 albuterol sulfate 90 mcg/actuation 2 puffs inhalation QID PRN 10/07/22 03/08/23 Unknown aerosol inhaler (Ventolin HFA) shortness of breath or wheezing #8.5 grams Active Medications Generic Name Dose Route Start Last Admin Trade Name Freq PRN Reason Stop Dose Admin Lactated Ringer's 1,000 mls @ 125 mls/hr 03/08/23 08:10 03/08/23 09:49 Lr IV 03/10/23 08:09 999 mls/hr .Q8H PRN Administration L&D Protocol Protocol Past Medical History Medical History Anxiety Gastroesophageal reflux Genital herpes simplex History of febrile seizure Lentigines followed by dermatology. Exercise / Class Metabolic Activity II 4-5 Yardwork/Stairs/Walk up hill Past Family History Family History Grandmother Diabetes Sister Kidney stones Seizure Grandfather Prostate cancer Grandfather (Maternal) Myocardial infarction Aunt Myocardial infarction Brother Seizure Father B12 deficiency Mother No known health problems Denies family history of Ovarian cancer Breast cancer Colorectal cancer Past Surgical History Surgical History History of tonsillectomy and adenoidectomy S/P wisdom tooth extraction Past Anesthesia History No Hx of Anesthesia Complications and No Family Hx of Anesthesia Complications History of PONV No Hx of PONV and No Hx of Motion Sickness Social History Smoking Status: Never smoker Do You Dip or Chew Tobacco: No Hx Alcohol Use: No Hx Substance Use: No substance use type: does not use Physical Exam Vital Signs Last Vital Signs Temp 36.8 C 03/08/23 08:04 Pulse 77 03/08/23 09:52 Resp 20 03/08/23 08:04 BP 130/76 03/08/23 09:52 Pulse Ox 100 03/08/23 09:50 Testing Laboratory Results 03/08/23 08:27
[2023-03-08] MEDS: ePHEDrine sulfate 50 MG/ML AMP IV PRN ×2 (10:36→10:44)
[2023-03-08] MEDS ORDERED: IBUPROFEN 600 MG TAB PO PRN ×2 (16:33→17:25)
[2023-03-08] MEDS ORDERED: HYDROCORTISONE ACETATE 25 MG SUPP PR PRN ×2 (16:33→17:25)
[2023-03-08] MEDS ORDERED: BENZOCAINE 20% AER SPR 82.5 GM CAN EXT PRN ×2 (16:33→17:25)
[2023-03-08] MEDS ORDERED: bisacodyL 10 MG SUPP PR PRN ×2 (16:33→17:25)
[2023-03-08] MEDS ORDERED: DIPHTHERIA/TETANUS/PERTUSSIS Vaccine (Tdap, Age 7+yrs) 0.5mL SYR/VL IM ONE ×2 (16:33→17:25)
[2023-03-08] MEDS ORDERED: ACETAMINOPHEN 325 MG TAB PO PRN ×2 (16:33→17:25)
--- NOTE | 2023-03-08 16:33 | Delivery Summary ---
Vaginal Delivery Summary Date of Service March 08, 2023 Vaginal Delivery Summary Patient was induced electively past 39 weeks group B strep negative COVID- negative she was given Pitocin and a cervical López requested epidural progressed to fully dilated after artificial rupture of membranes she did have some thin meconium she pushed a baby over occiput posterior position mouth and then nares suctioned there was a loose nuchal cord passed over the head gentle traction on the baby no excessive force live vigorous female easy delivery cord clamped and cut cord was then gently pulled and was allowed delivery of the placenta by traction IV Pitocin started small second-degree tear repaired with 3-0 Vicryl sponge and instrument counts correct estimated blood loss 200 mL
--- NOTE | 2023-03-08 17:00 | Anesthesia Procedure Note ---
Date of Service March 08, 2023 Anesthesia Post Epidural Note Vital Signs Vital Signs: Temp Pulse Resp BP Pulse Ox 36.6 C 93 H 20 115/68 100 03/08/23 14:56 03/08/23 16:56 03/08/23 14:56 03/08/23 16:56 03/08/23 16:25 Pain Intensity Bilateral Abdomen: Pain Intensity: 3 Notes Mental Status: alert / awake / arousable and participated in evaluation Patient Amnestic to Procedure: No Nausea / Vomiting: adequately controlled Pain: adequately controlled Airway Patency, RR, SpO2: stable & adequate BP & HR: stable & adequate Hydration State: stable & adequate Neuraxial Anesthesia: was administered and sensory block is resolving Anesthetic Complications: no major complications apparent and Pt Satisfied with anesthetic care Epidural: Removed without complications and With tip intact
[2023-03-08] MEDS ORDERED: oxyCODONE/ACETAMINOPHEN 5mg/325mg TAB PO PRN (17:25)
[2023-03-08] MEDS: DOCUSATE SODIUM 100 MG CAP PO SCH (20:14)
[2023-03-08] MEDS ORDERED: DOCUSATE SODIUM 100 MG CAP PO SCH (21:00)
--- NOTE | 2023-03-09 06:16 | Obstetrical Progress Note ---
Date of Service <Kavya HahnStefany Blair DO - Last Filed: 03/09/23 07:49> March 09, 2023 Assessment & Plan <Kavya Ace Blair DO - Last Filed: 03/09/23 07:49> (1) care following vaginal delivery: Patient is PPD 1 s/p and doing well. - Eating well, voiding well, ambulating well - Vitals reviewed and within normal limits - Pain well controlled with analgesics - OOB, ambulation, diet progression as tolerated - Blood type: A+, GBS neg, rubella equiv (MMR prior to d/c) - Plan to discharge today - After discharge, 6 [address] follow up with Dr[address] Vega <Anupama Vega MD, FACOG - Last Filed: 03/09/23 07:24> (1) care following vaginal delivery: Subjective <Kavya Bello DO Rossy - Last Filed: 03/09/23 07:49> Patient is a 32 yo female who is now PPD #1 following spontaneous vaginal delivery at 39 1/7 weeks. Reports feeling well this morning. 2/10 pain well managed on analgesics. Voiding without issue. Tolerating regular meals overnight and able to ambulate some. She has passed gas but no bowel movements. Persistent lochia with some improvement this morning. Currently bottle feeding. Review of Systems Denies fever, chills, sweats. Denies SOB, difficulty breathing, chest pain, palpitations, and chest pressure. Denies breast pain. Denies dysuria. Denies headache or changes in vision. Physical Exam <Kavya Ace Blair DO - Last Filed: 03/09/23 07:49> General: Alert and oriented. No acute distress. CV: Regular rate and rhythm. No murmurs. Respiratory: CTA bilaterally. No rhonchi, wheezes, or crackles. No increased work of breathing. Abdomen: Positive bowel sounds. Soft, nontender, non distended. Uterus: Fundus firm and palpable 2 cm below the umbilicus. Lower extremities: No LE edema. No deep calf pain. Results & Data <Kavya Ace Blair DO - Last Filed: 03/09/23 07:49> Vital Signs (Past 12 Hours) Vital Signs Temp Pulse Pulse Resp BP BP 03/09/23 03:30 36.5 C 79 18 111/73 03/09/23 00:10 36.8 C 86 18 99/61 L 03/08/23 19:30 36.4 C L 111 H 18 122/80 03/08/23 18:26 110 H 03/08/23 18:26 119/76 <Anupama Vega MD, FACOG - Last Filed: 03/09/23 07:24> Co-Signing Physician Notes Resident Physician Supervision Note: I was present with [Name of resident] during the history and exam. I discussed the case with the resident and agree with the findings and plan as documented in the note. Any exceptions or clarifications are listed here: [None] Documented By: Anupama Vega MD, FACOG Resident Activity Tracking <Kavya Blair DO - Last Filed: 03/09/23 07:49> Resident Involvement: Resident Care Provided Care Provided: OB Delivery
[2023-03-09 07:11] LABS: Hematocrit (blood only) 27.6 % (37.0-47.0); Hemoglobin 8.8 g/dl (12.0-16.0); Mean Corpuscular Hemoglobin 24.6 pg (25.0-34.0); Mean Corpuscular Hgb Conc 31.9 g/dL (32.0-36.0); Mean Corpuscular Volume 77.1 fL (80.0-100.0); Platelet Count 124 K/uL (130-400); RDW Standard Deviation 44.2 fL (36.4-46.3); Red Blood Count 3.58 M/uL (4.20-5.40); White Blood Count 9.49 K/ul (4.8-10.8)
[2023-03-09] MEDS: DOCUSATE SODIUM 100 MG CAP PO SCH (07:48)
[2023-03-09] MEDS ORDERED: MEASLES, MUMPS & RUBELLA VIRUS VIAL SQ ONE (07:51)
[2023-03-09] MEDS ORDERED: PRENATAL VITAMIN 1 TAB PO SCH ×2 (08:00)
[2023-03-09] MEDS ORDERED: ESCITALOPRAM OXALATE 10 MG TAB PO SCH (09:00)
[2023-03-09] MEDS ORDERED: MEASLES, MUMPS & RUBELLA VIRUS VIAL ONE (15:56)
[2023-03-09] MEDS ORDERED: bisacodyL 5 MG TABEC PO SCH ×2 (20:00)
== END 2023-03-09 18:27 | disposition home or self-care (01) | DRG 807 ==
LOC: 4S1 07:44 → 4E2 19:38

== ENCOUNTER 2025-07-18 10:13 | Inpatient (IN) ==
[2025-07-18] MEDS ORDERED: LIDOCAINE 1% LOCAL 20 ML VIAL INFIL PRN (11:03)
[2025-07-18] MEDS ORDERED: OXYTOCIN 30 UNITS/NSS 30 UNITS/500 ML BAG IV PRN ×2 (11:03→18:42)
[2025-07-18] MEDS: OXYTOCIN 30 UNITS/NSS 30 UNITS/500 ML BAG IV PRN (11:29)
[2025-07-18] MEDS: LACTATED RINGER'S 1,000 ML IV PRN (11:29)
[2025-07-18 11:55] LABS: Hematocrit (blood only) 34.6 % (37.0-47.0); Hemoglobin 11.0 g/dl (12.0-16.0); Mean Corpuscular Hemoglobin 24.9 pg (25.0-34.0); Mean Corpuscular Volume 78.5 fL (80.0-100.0); Platelet Count 167 K/uL (130-400); RDW Standard Deviation 65.9 fL (36.4-46.3); Red Blood Count 4.41 M/uL (4.20-5.40); White Blood Count 5.73 K/ul (4.8-10.8)
--- NOTE | 2025-07-18 11:59 | History & Physical Report ---
Date of Service July 18, 2025 Assessment & Plan (1) Genital herpes: (2) Anemia: (3) Supervision of elderly multigravida: Plan 34 yo [id number] female at 39+2 WOG planned for IOL. Oxytocin started. Admission and Anticipated Discharge Date Admission Date: July 18, 2025 History of Present Illness Chief Complaint: Patient is a 34 yo female [id number] currently at 39+2 WGA with an CELI 07/21/2025 as determined by US who is here for reason for induction. Her was complicated by Genital Herpes, Anemia No contractions; movement present; No fluid loss; No bloody show External FHT and external uterine monitors used; category 1 tracing; normal FHT variability Had regular appointments with OB. Labs: (hb 11/hct 34.6/wbc 5.73) Blood type: A positive Antibody screen: negative Hgb: 11 (today) Hct: 34.6 (today) WBC: 5.73(today) Plt: 167 (today) Rubella: Immune VDRL/RPR: negative Gonorrhea: negative Chlamydia: negative HIV: negative HbSAg:NON-REACTIVE GBS: negative Other screens: cff-DNA: low risk Primary Care Provider: Coleen Huynh DO Allergies Allergy/AdvReac Type Severity Reaction Status Date / Time nickel Allergy Rash Verified 07/18/25 10:35 No Known Drug Allergies Allergy Unknown Verified 07/18/25 10:35 Home Medications Medication Instructions Recorded Confirmed Type albuterol sulfate 90 mcg/actuation 2 puffs inhalation QID PRN 10/07/22 07/18/25 Rx aerosol inhaler (Ventolin HFA) shortness of breath or wheezing #8.5 grams prenat.vits,lilly,[id number] 1 tab PO DAILY 12/11/24 07/18/25 History ferrous sulfate 325 mg (65 mg 325 mg PO QDAY 06/13/25 07/18/25 History iron) tablet valacyclovir 500 mg tablet 500 mg PO BID #60 tabs 06/20/25 07/18/25 Rx (Valtrex) Past Med/Surg History Problem List (Updated 07/18/25 @ 10:34 by Isabel Wilkerson RN) Cystocele affecting management of , antepartum Encounter for anatomic survey Early stage of Supervision of elderly multigravida Anxiety Gastroesophageal reflux Lentigines followed by dermatology. Genital herpes simplex Medical History (Updated 07/18/25 @ 10:34 by Isabel Wilkerson, RN) Genital herpes on valtrex at 36 weeks- no outbreak Anemia transfusions X3 last infusion 07/04/25 History of febrile seizure Surgical History S/P wisdom tooth extraction History of tonsillectomy and adenoidectomy Family History Grandmother Diabetes Sister Kidney stones Seizure Grandfather Prostate cancer Grandfather (Maternal) Myocardial infarction Aunt Myocardial infarction Brother Seizure Father B12 deficiency Mother No known health problems Denies family history of Ovarian cancer Breast cancer Colorectal cancer Social History Smoking Status: Never smoker Second Hand Exposure: No; Do You Dip or Chew Tobacco: No; Hx Alcohol Use: No Hx Substance Use: No Preferred Language: Stateless Communication Ability: Effective Visual Impairment: No Limitations Hearing Ability: Normal Tar Man Required: No Beliefs That Will Affect Care: None marital status: marital status details: Terry (39) [phone] Current Living Situation: Spouse Current Living Situation Comment: lives with spouse, son and (2) daughters,dog,1 cat, spouse to change litter current occupational status: employed 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 Physical Exam Physical Exam: General: Alert and oriented. No acute distress CV: Regular rate and rhythm. No murmurs. Respiratory: CTA bilaterally. No rhonchi, wheezes, or crackles. No increased work of breathing. Abdomen: Gravid; Soft, nontender upon palpation Pelvic: Dilated 3 cm; Effacement 50%; Station -[address] Macedo Lower extremities: No LE edema. No deep calf pain. Curry's negative bilaterally. Results & Data Results & Data Vital Signs (Past 12 Hours) Vital Signs Temp Pulse Resp BP 07/18/25 11:30 85 118/76 07/18/25 10:31 36.7 C 18 07/18/25 10:25 106 H 134/70 Resident Activity Tracking Resident Involvement: Resident Care Provided Care Provided: Adult Hospital Medicine
[2025-07-18] MEDS: LIDOCAINE 2%/EPINEPHRINE 1:200,000 20 ML PF ONE (13:39)
[2025-07-18] MEDS: SODIUM CHLORIDE 0.9% PF INJ 10 ML VIAL ONE (13:39)
[2025-07-18] MEDS: BUPIVACAINE 0.25% PF 30 ML VIAL ONE (13:39)
[2025-07-18] MEDS: fentANYL 2 MCG/ML BUPIVacaine 0.125%-NSS 100ML BAG ONE (13:41)
[2025-07-18] MEDS ORDERED: ROPIVACAINE 0.5% PF 5 MG/ML 20 ML VIAL EPI PRN (13:45)
[2025-07-18] MEDS ORDERED: ONDANSETRON INJ 2 MG/ML 2 ML VIAL IV PRN (13:45)
[2025-07-18] MEDS ORDERED: LIDOCAINE 2% MPF LOCAL 5 ML VIAL EPI PRN (13:45)
[2025-07-18] MEDS ORDERED: BUPIVACAINE 0.25% PF 30 ML VIAL EPI PRN (13:45)
[2025-07-18] MEDS ORDERED: NALOXONE HCL 1 MG in SODIUM CHLORIDE 0.9% 1,000 ML IV PRN (13:45)
[2025-07-18] MEDS ORDERED: NALBUPHINE HCL INJ 10 MG/ML AMP IV PRN (13:45)
[2025-07-18] MEDS ORDERED: SODIUM CHLORIDE 0.9% PF INJ 10 ML VIAL EPI PRN (13:45)
[2025-07-18] MEDS ORDERED: NALOXONE HCL 0.4 MG/1 ML VIAL/CARP IV PRN (13:45)
[2025-07-18] MEDS ORDERED: fentANYL 2 MCG/ML BUPIVacaine 0.125%-NSS 100ML BAG EPI PRN (13:45)
[2025-07-18] MEDS ORDERED: diphenhydrAMINE 50 MG/ML VIAL IV PRN (13:45)
[2025-07-18] MEDS: BUPIVACAINE 0.25% PF 30 ML VIAL EPI STA (14:03)
[2025-07-18] MEDS: SODIUM CHLORIDE 0.9% PF INJ 10 ML VIAL EPI STA (14:03)
[2025-07-18] MEDS: LIDOCAINE 2%/EPINEPHRINE 1:200,000 20 ML PF EPI STA (14:03)
--- NOTE | 2025-07-18 15:00 | Anesthesiology Consultation ---
Date of Service July 18, 2025 Assessment & Plan Chart Review Chart Review: Patient NOT seen in Pre Admission Testing and Acceptable Risk for Labor Epidural Consults Requested none ASA ASA2 Proposed Anesthesia Anesthesia Type: Labor Epidural Risk / Benefits Reviewed With: PT / POA / Parent / Guardian, Accepts Plan and Informed Consent Obtained History Height/Weight Height: 5 ft 2 in Weight: 58.513 kg Allergies Allergy/AdvReac Type Severity Reaction Status Date / Time nickel Allergy Rash Verified 07/18/25 10:35 No Known Drug Allergies Allergy Unknown Verified 07/18/25 10:35 Medications Home Medications Medication Instructions Recorded Confirmed Last Taken albuterol sulfate 90 mcg/actuation 2 puffs inhalation QID PRN 10/07/22 07/18/25 Unknown aerosol inhaler (Ventolin HFA) shortness of breath or wheezing #8.5 grams prenat.vits,lilly,[id number] 1 tab PO DAILY 12/11/24 07/18/25 07/18/25 ferrous sulfate 325 mg (65 mg 325 mg PO QDAY 06/13/25 07/18/25 07/04/25 iron) tablet valacyclovir 500 mg tablet 500 mg PO BID #60 tabs 06/20/25 07/18/25 07/18/25 (Valtrex) Active Medications Generic Name Dose Route Start Last Admin Trade Name Freq PRN Reason Stop Dose Admin Lactated Ringer's 1,000 mls @ 125 mls/hr 07/18/25 11:03 07/18/25 13:35 Lr IV 07/20/25 11:02 125 mls/hr .Q8H PRN Administration L&D Protocol Protocol Oxytocin 30 units in 500 mls @ 6 mls/hr 07/18/25 11:03 07/18/25 14:40 Pitocin 30 Units/Nss IV 07/20/25 11:02 0.36 units/hr .Q24H PRN 6 mls/hr Labor Induction/Augmentation Titration Protocol 0.36 UNITS/HR Past Medical History Medical History (Updated 07/18/25 @ 10:34 by Isabel Wilkerson RN) Genital herpes on valtrex at 36 weeks- no outbreak Anemia transfusions X3 last infusion 07/04/25 History of febrile seizure Exercise / Class Metabolic Activity II 4-5 Yardwork/Stairs/Walk up hill Past Family History Family History Grandmother Diabetes Sister Kidney stones Seizure Grandfather Prostate cancer Grandfather (Maternal) Myocardial infarction Aunt Myocardial infarction Brother Seizure Father B12 deficiency Mother No known health problems Denies family history of Ovarian cancer Breast cancer Colorectal cancer Past Surgical History Surgical History S/P wisdom tooth extraction History of tonsillectomy and adenoidectomy Past Anesthesia History No Hx of Anesthesia Complications and No Family Hx of Anesthesia Complications History of PONV No Hx of PONV and No Hx of Motion Sickness Social History Smoking Status: Never smoker Do You Dip or Chew Tobacco: No Hx Alcohol Use: No Hx Substance Use: No substance use type: does not use Physical Exam Vital Signs Last Vital Signs Temp 36.9 C 07/18/25 14:00 Pulse 77 07/18/25 14:57 Resp 18 07/18/25 14:45 BP 105/68 07/18/25 14:57 Pulse Ox 100 07/18/25 14:56 ENMT Mouth: no dentition abnormality Thyromental Distance: > or= 3.5 Finger Breadths Mallampati Class: II Neck normal visual inspection Respiratory normal respiratory effort Auscultation: lungs clear to auscultation bilaterally Cardiovascular Rate/Rhythm: regular rate and regular rhythm Psychiatric Orientation: alert Testing Laboratory Results 07/18/25 11:16
--- NOTE | 2025-07-18 17:56 | Labor Progress Brief Note ---
Date of Service July 18, 2025 Subjective Comfortable with epidural Assessment & Plan Admission and Anticipated Discharge Date Admission Date: July 18, 2025 Physical Exam Genitourinary: 9/100/+1 bloody show, clear fluid FHT Cat 1 (prior decel noted, responded to resusc measures) [place] Q2-3 Results & Data Vital Signs (Past 12 Hours) Vital Signs Temp Pulse Resp BP Pulse Ox 07/18/25 17:51 83 100 07/18/25 17:46 91 H 99 07/18/25 17:42 92 H 104/64 07/18/25 17:41 88 100 07/18/25 17:36 81 100 07/18/25 17:31 89 100 07/18/25 17:30 18 07/18/25 17:30 18 07/18/25 17:27 86 93/52 L 07/18/25 17:26 87 100 07/18/25 17:21 78 100 07/18/25 17:16 75 100 07/18/25 17:12 99 H 92/57 L 07/18/25 17:11 89 100 07/18/25 17:06 111 H 99 07/18/25 17:01 81 100 07/18/25 17:00 18 07/18/25 17:00 97.9 F 18 07/18/25 16:58 90 93/56 L 07/18/25 16:56 100 H 100 07/18/25 16:51 96 H 100 07/18/25 16:46 82 100 07/18/25 16:43 83 99/60 L 07/18/25 16:41 86 99 07/18/25 16:36 85 100 07/18/25 16:31 81 100 07/18/25 16:30 20 07/18/25 16:30 20 07/18/25 16:27 100 H 100/58 L 07/18/25 16:26 85 99 07/18/25 16:21 87 100 07/18/25 16:16 99 H 100 07/18/25 16:13 83 102/58 L 07/18/25 16:11 82 100 07/18/25 16:06 79 100 07/18/25 16:01 84 100 07/18/25 16:00 20 07/18/25 16:00 20 07/18/25 15:58 86 110/73 07/18/25 15:56 91 H 100 07/18/25 15:51 78 100 07/18/25 15:46 77 99 07/18/25 15:42 81 103/62 07/18/25 15:41 78 100 07/18/25 15:36 75 100 07/18/25 15:31 74 98 07/18/25 15:30 16 07/18/25 15:30 16 07/18/25 15:28 70 102/58 L 07/18/25 15:26 79 100 07/18/25 15:21 76 100 07/18/25 15:16 75 100 07/18/25 15:13 75 109/62 07/18/25 15:11 77 100 07/18/25 15:06 73 100 07/18/25 15:01 76 100 07/18/25 15:00 98.6 F 16 07/18/25 15:00 20 07/18/25 15:00 20 07/18/25 14:57 77 105/68 07/18/25 14:56 79 100 07/18/25 14:51 74 100 07/18/25 14:46 77 100 07/18/25 14:45 18 07/18/25 14:41 91 H 100 07/18/25 14:36 82 108/62 100 07/18/25 14:33 82 112/63 07/18/25 14:31 88 98 07/18/25 14:30 20 07/18/25 14:30 20 07/18/25 14:26 80 107/64 100 07/18/25 14:22 73 104/62 07/18/25 14:21 68 100 07/18/25 14:17 76 101/61 07/18/25 14:16 71 100 07/18/25 14:15 18 07/18/25 14:13 79 103/62 07/18/25 14:11 76 100 07/18/25 14:06 72 07/18/25 14:06 67 108/60 100 07/18/25 14:02 87 114/66 07/18/25 14:01 101 H 98 07/18/25 14:00 98.4 F 20 07/18/25 13:56 88 129/70 100 07/18/25 13:51 89 99 07/18/25 13:50 95 H 125/67 07/18/25 13:48 79 130/63 07/18/25 13:46 99 H 111/68 99 07/18/25 13:45 18 07/18/25 13:44 80 120/72 07/18/25 13:42 82 113/70 07/18/25 13:41 87 100 07/18/25 13:40 20 07/18/25 13:40 77 116/68 07/18/25 13:38 91 H 132/75 07/18/25 13:36 109 H 100 07/18/25 13:31 86 100 07/18/25 13:26 92 H 100 07/18/25 13:21 80 99 07/18/25 13:16 76 100 07/18/25 13:11 86 100 07/18/25 13:06 80 100 07/18/25 13:01 75 100 07/18/25 12:56 78 100 07/18/25 12:51 77 100 07/18/25 12:31 81 108/69 07/18/25 11:30 85 118/76 07/18/25 10:31 98.1 F 18 07/18/25 10:25 106 H 134/70 Coding Level of Care Code None
--- NOTE | 2025-07-18 18:23 | Delivery Summary ---
Vaginal Delivery Summary Date of Service July 18, 2025 Vaginal Delivery Summary DIAGNOSES: 1. De La O intrauterine at term gestation. 2. Induction of Labor. 3. Group B Streptococcus Neg. PROCEDURE: Spontaneous vaginal delivery and repair of 1st degree laceration. SURGEON: Martine Macedo MD. NARROW GAUGE BRAKEMAN: None. ESTIMATED BLOOD LOSS: 112 mL. COMPLICATIONS: None. PLACENTA: Spontaneous and intact with a 3-vessel cord. DISPOSITION: Stable to labor and delivery. DESCRIPTION: The patient pushed well and brought the head to in OA position. The 's head was allowed to deliver with contraction force and no further active pushing, with the perineum protected during this time. There was no nuchal cord. The left shoulder was anterior. The shoulders and body delivered without any difficulty, and the infant was placed on the maternal abdomen. It was vigorous and moving all extremities, and making respiratory efforts. The cord was doubly clamped by the MD and then cut by the FOB. The placenta delivered spontaneously and was noted to be intact and with a 3VC. The cervix, vagina and perineum were examined and were found to have a tiny posterior fourchette laceration which was reapproximated with vicryl suture for hemostasis and cosmesis. The fundus was firm and lochia minimal immediately after delivery. [facility] Vaginal Delivery Charge Vaginal Delivery Codes: 67645 global code for the antepartum, delivery, and post-
[2025-07-18] MEDS ORDERED: IBUPROFEN 600 MG TAB PO PRN (18:42)
[2025-07-18] MEDS ORDERED: HYDROCORTISONE ACETATE 25 MG SUPP PR PRN (18:42)
--- NOTE | 2025-07-18 19:18 | Anesthesia Procedure Note ---
Date of Service July 18, 2025 Anesthesia Post Epidural Note Vital Signs Vital Signs: Temp Pulse Resp BP Pulse Ox 36.6 C 108 H 18 113/64 100 07/18/25 17:00 07/18/25 19:07 07/18/25 19:05 07/18/25 19:07 07/18/25 18:16 Notes Mental Status: alert / awake / arousable Nausea / Vomiting: adequately controlled Pain: adequately controlled Airway Patency, RR, SpO2: stable & adequate BP & HR: stable & adequate Hydration State: stable & adequate Neuraxial Anesthesia: was administered and sensory block is resolving Anesthetic Complications: no major complications apparent and Pt Satisfied with anesthetic care Epidural: Removed without complications and With tip intact
[2025-07-18] MEDS: BENZOCAINE 20% SPRY 85 APPLN/85 GM CAN EXT PRN (20:26)
[2025-07-18] MEDS: DOCUSATE SODIUM 100 MG CAP PO SCH (20:26)
[2025-07-18] MEDS: DIPHTHER/TETAN/PERTUS Vaccine (Tdap, Adol/Adult) 0.5mL IM ONE (20:42)
[2025-07-19] MEDS: ACETAMINOPHEN 325 MG TAB PO PRN (01:43)
--- NOTE | 2025-07-19 06:09 | Obstetrical Progress Note ---
Date of Service July 19, 2025 Assessment & Plan (1) Genital herpes: (2) Anemia: (3) Supervision of elderly multigravida: Plan Assessment and plan 34 yo [id number] post- day 1 s/p with 1st degree laceration Fells well today. Vital signs stable Continue post- care Encourage ambulation and Pain controlled with ibuprofen Hgb stable Discharge home today, follow up with in 6 weeks. Admission and Anticipated Discharge Date Admission Date: July 18, 2025 Subjective Post- HPI 34 yo [id number] post- day1 s/p with 1st degree laceration. Ambulation: ambulating normally Voiding: no voiding problems Passing Gas:: Yes Diet Tolerance:: regular diet Lochia:: Small Feeding Type:: bottle feeding Current Pain Level:Minimal pain. Resting comfortably this AM in NAD. Denies RICHARDSON, CP, SOB, N/V/D, LE pain/swelling. Review of Systems Review of Systems: As per HPI Physical Exam Physical Exam: Post- PE General: patient resting comfortably, NAD, non-toxic in appearance, AA&O x 4, answers questions appropriately. Skin: warm, dry, intact HEENT: NC/AT, anicteric sclera, conjunctiva without injection, moist mucus membranes. Heart: +S1/S2, regular, no m/r/g Lungs: equal air entry bilaterally, no rales/rhonchi/wheezes Abd: +BS, soft, NT/ND, uterine fundus firm at umbilicus. Ext: warm, no clubbing/cyanosis or edema, Curry's neg. Neuro: nonfocal, patient AA&O x 4, speech intact, no facial droop, moving all extremities on command. Results & Data Vital Signs (Past 12 Hours) Vital Signs Temp Pulse Pulse Resp BP BP Pulse Ox 07/19/25 05:00 36.7 C 75 16 100/67 99 07/19/25 01:30 36.5 C 71 16 105/70 99 07/18/25 20:40 36.9 C 92 H 16 115/74 97 07/18/25 20:40 36.9 C 92 H 16 115/74 97 07/18/25 20:32 16 07/18/25 20:21 117 H 104/75 07/18/25 20:06 110 H 113/70 07/18/25 19:51 103 H 118/71 07/18/25 19:50 18 07/18/25 19:36 102 H 119/77 07/18/25 19:21 94 H 127/70 07/18/25 19:20 18 07/18/25 19:07 108 H 113/64 07/18/25 19:05 18 07/18/25 18:52 93 H 120/69 07/18/25 18:38 111 H 120/73 07/18/25 18:22 91 H 114/53 L 07/18/25 18:16 104 H 100 07/18/25 18:12 99 H 135/60 07/18/25 18:11 135 H 100 O2 Del Method 07/19/25 05:00 Room Air 07/19/25 01:30 Room Air 07/18/25 20:40 Room Air 07/18/25 20:40 07/18/25 20:32 07/18/25 20:21 07/18/25 20:06 07/18/25 19:51 07/18/25 19:50 07/18/25 19:36 07/18/25 19:21 07/18/25 19:20 07/18/25 19:07 07/18/25 19:05 07/18/25 18:52 07/18/25 18:38 07/18/25 18:22 07/18/25 18:16 07/18/25 18:12 07/18/25 18:11 Resident Activity Tracking Resident Involvement: Resident Care Provided Care Provided: Adult Hospital Medicine
[2025-07-19 06:59] LABS: Hematocrit (blood only) 30.1 % (37.0-47.0); Hemoglobin 9.8 g/dl (12.0-16.0); Mean Corpuscular Hemoglobin 26.2 pg (25.0-34.0); Mean Corpuscular Volume 80.5 fL (80.0-100.0); Platelet Count 133 K/uL (130-400); RDW Standard Deviation 67.8 fL (36.4-46.3); Red Blood Count 3.74 M/uL (4.20-5.40); White Blood Count 7.35 K/ul (4.8-10.8)
[2025-07-19] MEDS: PRENATAL VITAMIN 1 TAB PO SCH (09:45)
[2025-07-19 12:28] VITALS: RESP 18
[2025-07-19 15:29] VITALS: BP 111/77; PULSE 83; TEMP 98.2; O2SAT 98
== END 2025-07-19 20:19 | disposition home or self-care (01) | DRG 807 ==
LOC: 4S1 10:13 → 4E2 20:44